=== PATIENT | female | born 1955 | race Caucasian/White ===

== ENCOUNTER 2017-12-10 19:19 | Emergency (ER) | payer MEDICARE, OTHER ==
--- NOTE | 2017-12-10 20:12 | ED Physician Documentation ---
General Adult - HISTORIAN Historian: patient - HPI Chief Complaint: General Adult Further Comments: yes (62 year old female patient presents with left posterior rib pain, states she was lifting plates into the cabinet and felt her rib "pop out". Reports similar injury last year.) - ROS CONST: no problems EYES/ENT: none CVS/RESP: none GI/: none MS/SKIN/LYMPH: none NEURO/PSYCH: denies: headache, fainting, dizziness, tingling, numbness, difficulty walking, difficulty with speech, anxiety, depression, other - PAST HX Past History: other (OA) Allergies/Adverse Reactions: Allergies Allergy/AdvReac Type Severity Reaction Status Date / Time morphine Allergy Verified 12/10/17 19:37 Home Medications: Ambulatory Orders Medication Instructions Recorded Baclofen [Liorasal] 10 mg PO TID PRN #30 tablet 12/10/17 Diclofenac Sodium/Misoprostol 1 tab PO DIRECTED 12/10/17 [Diclofenac-Misoprost 50-0.2 Tb] Ketorolac Tromethamine [Toradol] 10 mg PO TID #15 tablet 12/10/17 - SOCIAL HX Smoking History: cigarettes - FAMILY HX Family History: No - VITAL SIGNS Vital Signs: Vital Signs Temp Pulse Resp BP Pulse Ox 139/93 01/13/16 19:58 - REVIEWED ASSESSMENTS Nursing Assessment Reviewed: Yes Vitals Reviewed: Yes Progress - Progress Progress: Medicated for pain in the Er with norflex and toradol. Patient states she did not sleep last night due to the pain. Discharged with 2 norco to use if needed tonight. ED Results Lab/Radiology - Radiology Radiology Impressions: Left ribs, 4 images HISTORY Injury, pain. FINDINGS There is no rib fracture or abnormal bone destruction. IMPRESSION Normal. Electronically signed on Dec 10, 2017 7:59:20 PM CDT by: Gavin Vaughan - Orders Orders: ED Orders Category Date Time Status RIBS UNILAT 2 VIEWS [RAD] Stat Exams 12/10/17 Taken General Adult Physical Exam - PHYSICAL EXAM GENERAL APPEARANCE: mild distress EENT: eye inspection normal, GABRIEL RESPIRATORY: no resp distress, breath sounds normal, other (left upper posterior rib pain - T1-T3) CVS: reg rate & rhythm, heart sounds normal, equal pulses, no murmur, no gallop , PMI nml, no JVD, no friction rub, 24 ABDOMEN: soft, no organomegaly, normal bowel sounds, no abdominal bruit, no distension BACK: normal inspection, no CVA tenderness SKIN: normal color, warm/dry, NR, INT, PAL, DR EXTREMITIES: non-tender, normal range of motion, no evidence of injury, no edema , J, [employer]UM DYEING MACHINE OPERATOR NEURO: oriented X3, CN's nml as tested, motor nml, sensation nml, mood/affect nml Discharge Clincal Impression: Rib pain on left side Prescriptions: Baclofen [Liorasal] 10 mg PO TID PRN #30 tablet PRN Reason: Spasms Ketorolac Tromethamine [Toradol] 10 mg PO TID #15 tablet Referrals: Ant Brennan MD [Primary Care Provider] - 2 Days Additional Instructions: Ice Rest Elevation If you are unable to bear weight and continuing to have significant pain on day 3-4; see your PCP for re-evaluation and additional xrays. You may use Tylenol every 4hour as needed for pain. Limit your dose to less than 4 G per day. Do not take ibuprofen, aleve, naproxen or any other NSAID while you are on toradol. Hold diclofenac while on toradol. You may want to try chiropractic adjustment, massage, over the counter lidocaine patches, biofreeze, ko adair or aspercream . Condition: Stable Disposition: 01 HOME, SELF-CARE Decision to Admit: NO Decision Time: 20:11
[2017-12-10] MEDS ORDERED: HYDROcodone /APAP 5/325 1 EACH TABLET PO ONE (20:15)
[2017-12-10] MEDS ORDERED: ORPHENADRINE CITRATE 60 MG/2ML IM ONE (20:15)
[2017-12-10] MEDS ORDERED: KETOROLAC TROMETHAMINE 60 MG/2 ML VIAL IM ONE (20:15)
[2017-12-10 20:18] VITALS: BP 124/64
--- NOTE | 2017-12-11 06:52 | Diagnostic Imaging Report ---
KEMAR ARREAGA (PODIATRIC FOOT AND ANKLE SPECIALIST) - ER [facility] [address] [facility] [address] [place], [place]. [address] Report Submission Date: Dec 10, 2017 7:59:20 PM CDT Patient Study Name: CHETAN STOVALL Date: Dec 10, 2017 7:31:52 PM CDT Modality Type: DX Gender: F Description: CHEST : 51 Institution: [facility] Physician: KEMAR ARREAGA (PODIATRIC FOOT AND ANKLE SPECIALIST) - ER Left ribs, 4 images HISTORY Injury, pain. FINDINGS There is no rib fracture or abnormal bone destruction. IMPRESSION Normal. Electronically signed on Dec 10, 2017 7:59:20 PM CDT by: Gavin JIN
== END 2017-12-10 20:40 | disposition home or self-care (01) ==
LOC: ED 19:19
DX: R07.82 Intercostal pain (principal)
CPT/HCPCS: 71100; J1885; J2360; 96372; 99284

== ENCOUNTER 2018-08-28 09:47 | Outpatient (CLI) | payer MEDICARE, OTHER ==
--- NOTE | 2018-08-28 15:47 | Diagnostic Imaging Report ---
<p>Your browser does not support iframes.</p> ZACARIAS GRANADOS [place] [id number] [facility] [address] [address] Report Submission Date: Aug 28, 2018 2:39:32 PM CDT Patient Study Name: CHETAN STOVALL Date: Aug 28, 2018 9:49:20 AM CDT Modality Type: DX Gender: F Description: RIBS UNILAT 2 VIEWS : 51 Institution: [facility] Physician: ZACARIAS GRANADOS HISTORY: 62-year-old female with left chest wall pain after fall 4 days ago. COMPARISON: Left rib radiographs dated 12/10/2017. TECHNIQUE: Three views of the left ribs were performed. IMPRESSION: 1. No evidence of acute fracture of the left ribs or clavicle. 2. Old fracture of the left eleventh rib distally, stable. 3. Thoracolumbar spondylosis and mild S-shaped scoliosis. 4. Old granulomatous disease of the chest. Electronically signed on Aug 28, 2018 2:39:32 PM CDT by: Gianni JIN
== END 2018-08-28 09:50 ==
LOC: RAD 09:47
PROVIDERS: ATTEND Family Medicine
DX: R07.81 Pleurodynia (principal); M47.897 Other spondylosis, lumbosacral region
CPT/HCPCS: 71100

== ENCOUNTER 2019-01-05 17:29 | Emergency (ER) | payer MEDICARE, OTHER ==
--- NOTE | 2019-01-05 17:42 | ED Physician Documentation ---
General Adult - HISTORIAN Historian: patient - HPI Stated Complaint: L rib pain Chief Complaint: General Adult Onset: hours Timing: still present Severity: moderate Further Comments: yes (Pt is a 63 yo female who fell over the back edge of her couch while she was cleaning and presents with L rib pain. Pt took solonpas and Tylenol [employer]. Pt says it hurts to take a deep breath.) - ROS CONST: no problems EYES/ENT: none CVS/RESP: chest pain (with deep breath) GI/: none MS/SKIN/LYMPH: none - PAST HX Past History: COPD, other (neuropathy, OA, ) Surgeries/Procedures: BTL, other (ortho surgery) Allergies/Adverse Reactions: Allergies Allergy/AdvReac Type Severity Reaction Status Date / Time morphine Allergy Verified 01/05/19 17:47 - SOCIAL HX Smoking History: cigarettes, greater than 1 pack/day - FAMILY HX Family History: No - VITAL SIGNS Vital Signs: Vital Signs Temp Pulse Resp BP Pulse Ox 124/64 12/10/17 21:34 - REVIEWED ASSESSMENTS Nursing Assessment Reviewed: Yes Vitals Reviewed: Yes Progress - Progress Progress: X-ray L ribs with PA chest: Comparison is made with August 28, 2018. The cardiac and mediastinal silhouettes are normal. Bilateral upper lobe granulomata are again evident. The trachea is midline. Aortic arch contour is normal. The pulmonary vascularity is stable. There is healed deformity of the left 5th rib. No acute rib fracture is identified on the left. There is no evidence of p neumothorax. Impression: No acute cardiopulmonary abnormality. No acute left rib fracture. Lidoderm patch in ER no improvement [place] (5/325) 2 tabs po in ER. improved Rx [place] (5/325). Take one or two every 6 hours as needed for pain. Disp: 15 General Adult Physical Exam - PHYSICAL EXAM GENERAL APPEARANCE: moderate distress EENT: pharynx normal NECK: normal inspection, supple RESPIRATORY: breath sounds normal, other (L chest wall tenderness) CVS: reg rate & rhythm, heart sounds normal ABDOMEN: soft, no organomegaly, normal bowel sounds BACK: normal inspection, no CVA tenderness SKIN: warm/dry, normal color EXTREMITIES: non-tender, normal range of motion, no evidence of injury, no edema NEURO: oriented X3, motor nml, sensation nml Discharge Clincal Impression: Rib pain on left side Referrals: Ant Brennan MD [Primary Care Provider] - Condition: Good Disposition: 01 HOME, SELF-CARE Decision to Admit: NO Decision Time: 19:43
--- NOTE | 2019-01-05 18:04 | Diagnostic Imaging Report ---
JORDEN KRISHNAMURTHY [facility] [address] [facility] [address] [place], [place]. [address] Report Submission Date: Jan 05, 2019 6:02:11 PM CDT Patient Study Name: CHETAN STOVALL Date: Jan 05, 2019 5:38:19 PM CDT Modality Type: DX Gender: F Description: RIBS UNILATERAL W/ PA CHEST : 51 Institution: [facility] Physician: JORDEN KRISHNAMURTHY Chest 1 view and left ribs Date of Exam: January 05, 2019. History: PAIN ON LEFT SIDE OF RIBS DUE TO INJURY (Hx) / Findings: Comparison is made with August 28, 2018. The cardiac and mediastinal silhouettes are normal. Bilateral upper lobe granulomata are again evident. The trachea is midline. Aortic arch contour is normal. The pulmonary vascularity is stable. There is healed deformity of the left 5th rib. No acute rib fracture is identified on the left. There is no evidence of pneumothorax. Impression: No acute cardiopulmonary abnormality. No acute left rib fracture. Electronically signed on Jan 05, 2019 6:02:11 PM CDT by: Luis Antonio JIN
[2019-01-05] MEDS ORDERED: LIDOCAINE HCL 5% ADH..PATCH TP ONE (18:08)
[2019-01-05] MEDS: LIDOCAINE HCL 5% ADH..PATCH TP SCH (18:23)
[2019-01-05] MEDS: HYDROcodone /APAP 5/325 1 EACH TABLET PO ONE ×2 (19:36→19:54)
[2019-01-05 20:05] VITALS: BP 104/58
== END 2019-01-05 20:05 | disposition home or self-care (01) ==
LOC: ED 17:29
DX: R07.81 Pleurodynia (principal)

== ENCOUNTER 2019-02-03 10:28 | Outpatient (CLI) | payer MEDICARE, OTHER ==
--- NOTE | 2019-02-03 18:05 | Diagnostic Imaging Report ---
ZACARIAS GRANADOS [facility] [address] [facility] [address] Report Submission Date: Feb 03, 2019 1:03:26 PM CDT Patient Study Name: CHETAN STOVALL Date: Feb 03, 2019 10:28:18 AM CDT Modality Type: DX Gender: F Description: RIBS UNILAT 2 VIEWS : 51 Institution: [facility] Physician: ZACARIAS GRANADOS Exam: Left ribs. History: Fall. AP and oblique views of the left ribs are submitted. Acute fractures of the left 7th and 8th ribs are noted. No pleural or periosteal reaction is seen. No pneumothorax is identified. Impression: Acute fractures of the left 7th and 8th ribs. This was not noted on a previous study dated January 05, 2019. Electronically signed on Feb 03, 2019 1:03:26 PM CDT by: Lasha JIN
--- NOTE | 2019-02-03 18:06 | Diagnostic Imaging Report ---
ZACARIAS GRANADOS [facility] [address] [facility].[address] [address] Report Submission Date: Feb 03, 2019 1:04:37 PM CDT Patient Study Name: CHETAN STOVALL Date: Feb 03, 2019 10:28:18 AM CDT Modality Type: DX Gender: F Description: L SPINE 2 OR 3 VIEWS : 51 Institution: [facility] Physician: ZACARIAS GRANADOS Exam: Lumbar spine. History: Low back pain. AP, lateral and L5-S1 spot view of the lumbar spine are submitted. A dextroscoliosis is identified. A grade 1 spondylolisthesis of L4 on L5 is noted. The vertebral body heights are otherwise adequately maintained. Disc space narrowing in the lower lumbar spine is noted. Impression: Dextroscoliosis. Grade 1 spondylolisthesis of L4 on L5. Degenerative disc disease. Electronically signed on Feb 03, 2019 1:04:37 PM CDT by: Lasha JIN
== END 2019-02-03 10:33 ==
LOC: RAD 10:28
PROVIDERS: ATTEND Family Medicine
DX: M54.5 Low back pain (principal); R07.81 Pleurodynia
CPT/HCPCS: 71100; 72100

== ENCOUNTER 2019-02-25 08:55 | Outpatient (CLI) | payer MEDICARE, OTHER ==
--- NOTE | 2019-02-25 12:13 | Diagnostic Imaging Report ---
PATIENT MR#: [id number] PATIENT PATIENT NAME: CHETAN STOVALL DATE OF : 1955 REFERRING PHYSICIAN: Monica Anderson EXAM DATE: 02/25/2019 ACCESSION NUMBER: [id number] EXAM DESCRIPTION: L SPINE 4 VIEWS CLINICAL HISTORY: CHRONIC LOW BACK/HIP PAIN COMPARISON: February 03, 2019. L-SPINE XRAY, 7 views including obliques and flexion - extension: Vertebral bodies: No compression deformities. Disc spaces: Moderate degenerative disc narrowing at L2-3, L3-4 and L4-5. Rudimentary disc at L5-S1. Alignment: Mild dextrocurvature centered at L3-4. Normal lumbar lordosis. Grade 1 anterolisthesis of L4 over L5 which measures 9 mm in extension and 11 mm in flexion, based upon facet arthrosis. Facets: Degenerative arthrosis at L3-4, L4-5 and L5-S1. IMPRESSION: 1. Mild lumbar dextrocurvature. 2. Grade 1 anterolisthesis of L4 over L5 with mild instability in flexion. 3. Multilevel degenerative disc disease and facet arthrosis. 4. The appearance is similar to the prior exam. Read by: Dr. Daron Nesbitt Transcribed by: Daron Nesbitt Transcribed Date: 02/25/2019 12:12:43 PM Electronically signed by: Dr. Daron Nesbitt Date signed: 02/25/2019 12:12:43 PM
--- NOTE | 2019-02-25 12:26 | Diagnostic Imaging Report ---
PATIENT MR#: [id number] PATIENT PATIENT NAME: CHETAN STOVALL DATE OF : 1955 REFERRING PHYSICIAN: Monica Anderson EXAM DATE: 02/25/2019 ACCESSION NUMBER: [id number] EXAM DESCRIPTION: PELVIS AP 1 OR 2 VIEWS HISTORY: CHRONIC LOW BACK/HIP PAIN COMPARISON: No pertinent prior studies are available at this time. PELVIS XRAY, 2 FRONTAL VIEWS: Pelvic bone: Intact appearance. There is significant pelvic tilt, with the right iliac crest 2.6 cm l ower than left. Pelvic soft tissue: No calcifications along the expected course of the ureters. Hips: No fracture or dislocation. Mild bilateral hip arthrosis in the form of collar osteophytes. IMPRESSION: 1. Significant pelvic tilt, which likely contributes to lumbar dextrocurvature. 2. Mild bilateral hip arthrosis. Read by: Dr. Daron Nesbitt Transcribed by: Daron Nesbitt Transcribed Date: 02/25/2019 12:25:04 PM Electronically signed by: Dr. Daron Nesbitt Date signed: 02/25/2019 12:25:04 PM
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
== END 2019-02-25 09:55 ==
LOC: OUT 08:55
PROVIDERS: ATTEND Nurse Practitioner Adult Health
DX: G89.29 Other chronic pain (principal); M54.5 Low back pain; M54.2 Cervicalgia
CPT/HCPCS: 72170; 99203; G0463

== ENCOUNTER 2019-03-24 11:58 | Outpatient (CLI) | payer MEDICARE, OTHER ==
--- NOTE | 2019-03-25 14:47 | OP Clinic Progress Note ---
DATE OF SERVICE: 03/24/2019. CHIEF COMPLAINT: Low back pain. HISTORY OF PRESENT ILLNESS: Romana is a 63-year-old female patient here for follow-up of back pain. The patient has chronic low back pain that is described as constant and aching to sharp. At the last appointment she denied any radiation, however, on further questioning and interview today the patient does tell me that she does have some posterior and lateral right lower extremity pain. This is present at all times and just worsens in intensity intermittently. She denies any numbness, tingling, urinary incontinence, bowel incontinence or saddle anesthesias. She denies any lower extremity weakness. The pain is worse with standing, walking, sitting too long, lifting and weather changes. Her pain has improved with heat and ice, [id number] pain patches and with her prescribed gabapentin and diclofenac. IMAGING REVIEW: The patient did have a lumbar spine x-ray series to include flexion/extension here at [place] on 02/25/19. The impression was: 1) Mild lumbar dextrocurvature, 2) Grade 1 anterolisthesis at L4 over L5 with mild instability in flexion, 3) Multilevel degenerative disc disease and facet arthrosis, facet arthrosis worse at the L3-4, L4-5 and L5-S1 levels. AP pelvis performed on 02/25/19 here in [place]: Impression: 1) Significant pelvic tilt, which likely contributes to lumbar dextrocurvature, 2) Mild bilateral hip arthrosis. The patient also had an MRI of her lumbar spine completed at [facility], however, we do not have the report of this today. I did review the images, however, I want to get the report. PMFSH: Has been reviewed, and is without change. REVIEW OF SYSTEMS: A complete 14-point review of systems was completed and positive for glasses, low back pain, neck pain, joint pain, joint swelling, muscle spasms and ambulation assistance with a cane. PHYSICAL EXAMINATION: General: This is a well-developed, well nourished female patient presenting in no acute distress. Vital Signs: The patient is 58 tall. She weighs 160 lbs. Temperature is 98.0, pulse is 84, respiratory rate is 18. Blood pressure is 122/71 with an SAO2 of 99% on room air. She is rating her pain a 7/10 today. Psych: She is alert and oriented x3. She is calm, pleasant and cooperative. HEENT: She is normocephalic and atraumatic. Pupils are equal and round, without miosis. Sclerae clear. Musculoskeletal: The patient continues to have tenderness to palpation throughout the lumbar spine, worse over the L3-4, L4-5 and L5-S1 facet levels. She continues to have tenderness to palpation over the lumbar paraspinals. The SI joints are nontender on exam. Bilateral lower extremity strength is equal and strong in all areas, graded 5/5 in hip flexion, knee extension, knee flexion, dorsiflexion and plantar flexion. Neurologic: Cranial nerves 2-12 are grossly intact. The patient does walk with a slightly antalgic gait. IMPRESSION: 1. Chronic lumbago. 2. Degenerative disc disease, lumbar. 3. Lumbar facet arthrosis. 4. Spinal canal stenosis. PLAN: 1. The majority of her pain is in her back, therefore, we are going to start with facet joint injections at the bilateral L3-4, L4-5 and L5-S1 levels with Dr. Ferguson. 2. I have given her diclofenac 50 mg 1 p.o. t.i.d. with food, #90, with 2 refills. I have also given her tizanidine 4 mg one-half to 1 tab p.o. t.i.d. p.r.n. muscle spasms, dispense #90 with 2 refills. 3. I have also given her a prescription for [place] 5/325 mg 1 p.o. daily p.r.n. low back pain, dispense #30 with no refills. 4. The patient is to follow up in 1 month or sooner if needed. The patient did verbalize understanding and agreed to the current treatment plan. Thank you for your kind referral. Sincerely, Monica Anderson NP Nurse Practitioner RORY/kaycee JOB#: [id number] Cc: Dr. Ant JIN
== END 2019-03-24 13:00 | disposition home or self-care (01) ==
LOC: OUT 11:58
PROVIDERS: ATTEND Nurse Practitioner Adult Health
DX: M51.36 Other intervertebral disc degeneration, lumbar region (principal); M47.896 Other spondylosis, lumbar region; M48.061 Spinal stenosis, lumbar region without neurogenic claudication
CPT/HCPCS: 99213; G0463